=== PATIENT | female | born 1950 | race Caucasian/White ===

== ENCOUNTER 2017-07-21 11:00 | Emergency (ER) | payer MEDICARE, OTHER ==
[~2017-07-21] VITALS: Ht 154.9 cm; Wt 74.0 kg
[~2017-07-21 11:00] MED LIST: ALPR.25 PO; CYCL1TAB29 PO; HYDR25TA5 PO; LANS15CA PO; LOSA50TA PO; METO100T9 PO; ZETI10TA5 PO; [UNRECOGNIZED DRUG - OTHER]
[2017-07-21 11:02] VITALS: BP 159/80; PULSE 70; RESP 16; TEMP 97.7; O2SAT 95
--- NOTE | 2017-07-21 11:42 | PD ---
HPI Chief Complaint: Pain: Acute or Chronic Time Seen by Provider: 11:41 Travel History International Travel<30 days: No Contact w/Intl Traveler<30days: No Traveled to known affect area: No History of Present Illness HPI 66-year-old female presents to the emergency department with a 10 day history of right lower lumbar pain since moving [address] [place]. She denies numbness, tingling, or weakness. She denies changes in bowel or bladder. Patient was seen by her primary care physician who prescribed Flexeril which is not covered by her prescription plan. Patient has been using Tylenol and Naprosyn without improvement. She describes her pain as a dull ache just above her hip extending into the upper buttock. She denies sharp pain. Her pain is about a 5 out of 10. She is allergic to nicardipine and amoxicillin. PFSH Past Medical History High Cholesterol: Yes Diminished Hearing: No Genitourinary: Yes (FREQUENT UTI'S) Hypertension: Yes Menopausal: Yes Social History Alcohol Use: No Tobacco Use: No Substance Use: No Allergies-Medications (Allergen,Severity, Reaction): Coded Allergies: nicardipine (Unverified Allergy, Intermediate, 07/18/17) PAIN amoxicillin (Unverified Adverse Reaction, Intermediate, YEAST INFECTION, 07/18/17) Reported Meds & Prescriptions Reported Meds & Active Scripts Active Methocarbamol 500 Mg Tab 500 Mg PO QID [therapeutic massage] 1 2XWEEK Flexeril (Cyclobenzaprine HCl) 10 Mg Tab 10 Mg PO TID Zetia (Ezetimibe) 10 Mg Tab 10 Mg PO DAILY Metoprolol Succinate ER 24 HR (Metoprolol Succinate) 100 Mg Tab 100 Mg PO DAILY Hydrochlorothiazide 25 Mg Tab 25 Mg PO DAILY Lansoprazole 15 Mg Capdr 15 Mg PO DAILY Xanax (Alprazolam) 0.25 Mg Tab 0.25 Mg PO BID PRN Losartan (Losartan Potassium) 50 Mg Tab 50 Mg PO DAILY Review of Systems Except as stated in HPI: all other systems reviewed are Neg General / Constitutional: No: Fever Eyes: No: Visual changes HENT: No: Headaches Cardiovascular: No: Chest Pain or Discomfort Respiratory: No: Shortness of Breath Gastrointestinal: No: Abdominal Pain Genitourinary: No: Dysuria Musculoskeletal: No: Pain Skin: No Rash Neurologic: No: Weakness Psychiatric: No: Depression Endocrine: No: Polydipsia Hematologic/Lymphatic: No: Easy Bruising Physical Exam Narrative GENERAL: Patient appears in no acute distress. SKIN: Warm and dry. Normal color. Normal turgor. No rash. HEAD: Atraumatic. Normocephalic. EYES: Pupils equal and round. No scleral icterus. No injection or drainage. ENT: No nasal bleeding or discharge. Mucous membranes pink and moist. Airways patent. NECK: Trachea midline. Supple and nontender. CARDIOVASCULAR: Regular rate and rhythm. RESPIRATORY: No accessory muscle use. Clear to auscultation. Breath sounds equal bilaterally. GASTROINTESTINAL: Abdomen soft, non-tender, nondistended. Hepatic and splenic margins not palpable. MUSCULOSKELETAL: Extremities without clubbing, cyanosis, or edema. No obvious deformities. Patient has mild soft tissue tenderness in the right lower paraspinous muscles extending into the right upper buttock. Range of motion is intact in the weakness is detected. There is no bony tenderness noted. NEUROLOGICAL: Awake and alert. No obvious cranial nerve deficits. Motor grossly within normal limits. Five out of 5 muscle strength in the arms and legs. Normal speech. PSYCHIATRIC: Appropriate mood and affect; insight and judgment normal. Data Data Last Documented VS Vital Signs Date Time Temp Pulse Resp B/P (MAP) Pulse Ox O2 Delivery O2 Flow Rate FiO2 07/21/17 11:02 97.7 70 16 159/80 (106) 95 MDM Medical Decision Making Medical Screen Exam Complete: Yes Emergency Medical Condition: Yes Differential Diagnosis Low-back pain. Low back strain. Muscle spasm. Narrative Course Radiographic imaging is felt warranted based on my history and physical. Patient is given a prescription for methocarbamol 500 mg up to 4 times a day when necessary #40. Patient is to continue Naprosyn and acetaminophen as discussed. Patient should continue heat and ice and gentle stretching as discussed. Patient should follow with her primary care physician if symptoms do not improve or worsen. Diagnosis Primary Impression: Back pain Qualified Codes: M54.5 - Low back pain Additional Impression: Muscle spasm Referrals: Primary Care Physician Patient Instructions: Acute Low Back Pain (ED), General Instructions, Low Back Strain (ED) Additional Instructions: Radiographic imaging is felt warranted based on my history and physical. Patient is given a prescription for methocarbamol 500 mg up to 4 times a day when necessary #40. Patient is to continue Naprosyn and acetaminophen as discussed. Patient should continue heat and ice and gentle stretching as discussed. Patient should follow with her primary care physician if symptoms do not improve or worsen. Med/Other Pt SpecificInfo: Prescription(s) given Scripts Methocarbamol (Methocarbamol) 500 Mg Tab 500 MG PO QID for Muscle Spasm, #40 TAB 0 Refills Prov: Maged Keyes MD 07/21/17 Disposition: 01 DISCHARGE HOME Condition: Stable Abebe Hicks Jul 21, 2017 11:42
[2017-07-21] MEDS ORDERED: METH500T3 PO (11:52)
== END 2017-07-21 12:28 | disposition home or self-care (01) ==
LOC: NEPD 11:00
DX: M54.5 Low back pain (principal); M62.838 Other muscle spasm
CPT/HCPCS: 99283